=== PATIENT | male | born 1960 | race Caucasian/White ===

== ENCOUNTER 2024-09-27 10:39 | Outpatient (OUT) | payer OTHER, SELFPAY ==
[2024-09-27 11:17] LABS: Anion Gap 14.8; BUN Creatinine Ratio 13.3; Calcium 9.1 mg/dL (8.5-10.1); Carbon Dioxide 24.3 mmol/L (21.0-32.0); Chloride 106 mmol/L (98-107); Estimated GFR (African America >60 (>=60 mL/min/1.73m^2); Estimated GFR (Non-African Ame 50 (>=60 mL/min/1.73m^2); Glucose 102 mg/dL (74-106); Potassium 4.1 mmol/L (3.5-5.1); Sodium 141 mmol/L (136-145)
== END 2024-09-27 10:40 | disposition home or self-care (01) ==
PROVIDERS: PCP Family Medicine; Visit Provider Internal Medicine Cardiovascular Disease
DX: I42.8 Other cardiomyopathies (principal); I50.9 Heart failure, unspecified
CPT/HCPCS: 36415; 80048